=== PATIENT | female | born 1995 | race Caucasian/White ===

== ENCOUNTER 2017-04-28 03:08 | Emergency (ER) | payer OTHER ==
[~2017-04-28] VITALS: Ht 152.4 cm; Wt 49.5 kg
[2017-04-28 03:09] VITALS: TEMP 97.4
[2017-04-28] MEDS ORDERED: PROAIR HFA0.09 MG/AC IH (03:11)
[2017-04-28 04:08] LABS: BASO % 0.5 % (0.0-2.0); EOS % 0.3 % (0-4.0); GRAN # 6.3 (1.4-6.5); GRAN % 73.5 % (42.2-75.2); HEMOGLOBIN 12.2 g/dl (12.0-15.0); LYMPH # 1.6 (1.2-3.4); LYMPH % 18.2 % (20.0-51.0); MEAN CELL VOLUME 87 fl (80.0-95.0); MEAN CORPUSCULAR HEMOGLOBIN 29 pg (26.0-32.0); MEAN CORPUSCULAR HGB CONC 33 g/dl (33.0-37.0); MEAN PLATELET VOLUME 10.9 fl (7.4-10.4); MONO # 0.6 (0.1-0.6); MONO % 7.2 % (1.7-9.3); PLATELET COUNT 196 K/mm3 (130-400); RED BLOOD COUNT 4.22 M/mm3 (4.10-5.30); REDCELL DISTRIBUTION WIDTH-CV 13.5 % (11.5-14.5)
[2017-04-28 04:12] LABS: COLLECTION METHOD CLEAN CATCH
[2017-04-28 04:16] LABS: MUCOUS Present /lpf; PH 6 (5-8); SQUAMOUS EPITHELIAL 0-2 /hpf; URINE APPEARANCE Clear; URINE BACTERIA Rare /hpf; URINE BILIRUBIN Negative (NEGATIVE); URINE BLOOD Negative (NEGATIVE); URINE COLOR Yellow; URINE GLUCOSE Negative (NEGATIVE); URINE KETONE Negative (NEGATIVE); URINE LEUKOCYTE ESTERASE Negative (NEGATIVE); URINE NITRATE Negative (NEGATIVE); URINE PROTEIN(semi-quant) Negative (NEGATIVE); URINE RBC 0-2 /hpf; URINE UROBILINOGEN Negative (NEGATIVE)
[2017-04-28 04:18] LABS: HEMATOCRIT 36.7 % (35.0-45.0)
[2017-04-28 04:19] LABS: ALBUMIN 4.8 gm/dL (3.5-5.0); BILIRUBIN,TOTAL 0.6 mg/dL (0.0-1.0); CALCIUM 9.2 mg/dL (8.4-10.2); CREATININE, serum 0.58 mg/dL (0.52-1.25); POTASSIUM 4.2 mmol/L (3.4-5.0); TOTAL PROTEIN 8.5 gm/dL (6.4-8.2)
[2017-04-28 06:43] VITALS: BP 116/71
[2017-04-28 07:22] VITALS: PULSE 66
[2017-04-29] MEDS ORDERED: FLEXERIL 1010 MG/TAB PO (12:21)
[2017-04-29] MEDS ORDERED: NORCO 325 MG-51 TAB PO (12:21)
== END 2017-04-28 07:23 | disposition home or self-care (01) ==
LOC: COL.ER 03:08
PROVIDERS: Emergency Medicine
DX: S01.511A Laceration without foreign body of lip, initial encounter (principal); T14.8XXA Other injury of unspecified body region, initial encounter; J45.909 Unspecified asthma, uncomplicated; V49.40XA Driver injured in collision with unspecified motor vehicles in traffic accident, initial encounter

== ENCOUNTER 2017-04-29 10:42 | Emergency (ER) | payer OTHER ==
[~2017-04-29] VITALS: Ht 152.4 cm; Wt 50.0 kg
[~2017-04-29 10:42] MED LIST: PROAIR HFA0.09 MG/AC IH
[2017-04-29 10:43] VITALS: BP 128/82; PULSE 79; TEMP 99
[2017-04-29] MEDS ORDERED: FLEXERIL 1010 MG/TAB PO (12:21)
[2017-04-29] MEDS ORDERED: NORCO 325 MG-51 TAB PO (12:21)
== END 2017-04-29 12:40 | disposition home or self-care (01) ==
LOC: COL.ER 10:42
DX: S63.91XA Sprain of unspecified part of right wrist and hand, initial encounter (principal); R40.2412 Glasgow coma scale score 13-15, at arrival to emergency department; F12.90 Cannabis use, unspecified, uncomplicated; V43.52XA Car driver injured in collision with other type car in traffic accident, initial encounter
CPT/HCPCS: J1885; J2360